=== PATIENT | male | born 1995 | race Caucasian/White ===

== ENCOUNTER 2018-01-05 23:05 | Emergency (ER) | payer SELFPAY ==
[~2018-01-05] VITALS: Ht 170.2 cm; Wt 57.6 kg
[2018-01-05 23:17] VITALS: Ht 170.2 cm; Wt 57.6 kg
[2018-01-06 00:09] VITALS: BP 120/72
== END 2018-01-06 00:10 | disposition home or self-care (01) ==
LOC: ED 23:05
DX: L02.01 Cutaneous abscess of face (principal)

== ENCOUNTER 2018-01-07 09:08 | Emergency (ER) | payer SELFPAY ==
[~2018-01-07] VITALS: Ht 170.2 cm; Wt 53.5 kg
[2018-01-07 09:11] VITALS: Ht 170.2 cm; Wt 53.5 kg
[2018-01-07 09:33] VITALS: BP 117/65
== END 2018-01-07 09:33 | disposition home or self-care (01) ==
LOC: ED 09:08
DX: L02.01 Cutaneous abscess of face (principal); H91.92 Unspecified hearing loss, left ear

== ENCOUNTER 2018-03-13 10:51 | Emergency (ER) | payer SELFPAY ==
[~2018-03-13] VITALS: Ht 170.2 cm; Wt 53.5 kg
[2018-03-13 11:37] VITALS: Ht 170.2 cm; Wt 53.5 kg
[2018-03-13 13:20] VITALS: BP 107/61
== END 2018-03-13 13:20 | disposition home or self-care (01) ==
LOC: ED 10:51
DX: S60.221A Contusion of right hand, initial encounter (principal); W20.8XXA Other cause of strike by thrown, projected or falling object, initial encounter; Y93.89 Activity, other specified; Y92.89 Other specified places as the place of occurrence of the external cause; Y99.8 Other external cause status
CPT/HCPCS: A4570